=== PATIENT | female | born 1945 | race Caucasian/White ===

== ENCOUNTER → 2017-10-29 | Outpatient (CLI) | payer OTHER, MEDICARE ==
[~2017-10-29] VITALS: Ht 165.1 cm; Wt 74.8 kg
[~2017-10-29] MED LIST: CARDIZEM CD120 MG PO; COLACE100 MG PO; ELIQUIS5 MG PO; FLECAINIDE ACET50 M1 PO; LEVOTHYROXINE100 MC1 PO; MULTAQ 400 MG400 MG PO; OMEPRAZOLE40 MG PO; PACERONE 200 M200 M1 PO; TYLENOL325 MG PO; ZOCOR 20 MG TAB20 M1 PO
--- NOTE | ~2017-10-29 | P ---
[facility] [place] [address] PROCEDURE REPORT Name: HIRAM TRIMBLE Room #: REG [facility]#: [id number] Admission: 10/29/17 Attend Phys: Morgan Gomez MD Discharge: Date of : 49 Report #: [id number] THIS REPORT FOR: //name// CC: Morgan Welsh [place] PROCEDURE: Cardioversion. PREOPERATIVE DIAGNOSIS: Atrial fibrillation. POSTOPERATIVE DIAGNOSIS: Atrial fibrillation. HISTORY: The patient is a patient with atrial fibrillation, here for cardioversion. DESCRIPTION OF PROCEDURE: The patient underwent informed consent. The patient was then sedated by the Anesthesiology Service. Once sedated, she underwent a synchronized 200 joule cardioversion. She then went back into atrial fibrillation. A second 200 joule cardioversion was performed and she maintained sinus rhythm. There were no complications. CONCLUSIONS: Successful DC cardioversion with jewish of sinus rhythm. <ELECTRONICALLY SIGNED> By: Morgan Gomez MD 12/08/17 1455 1200 [id number] Morgan Gomez MD /nt
[2017-10-29 09:42] VITALS: BP 140/82
== END | disposition home or self-care (01) ==
LOC: CATH 09:14
DX: I48.91 Unspecified atrial fibrillation (principal); E78.5 Hyperlipidemia, unspecified; K21.9 Gastro-esophageal reflux disease without esophagitis; Z82.49 Family history of ischemic heart disease and other diseases of the circulatory system; Z98.890 Other specified postprocedural states; Z90.710 Acquired absence of both cervix and uterus; Z79.899 Other long term (current) drug therapy; Z79.01 Long term (current) use of anticoagulants; Z95.5 Presence of coronary angioplasty implant and graft; Z88.0 Allergy status to penicillin
CPT/HCPCS: 62110; 62900

== ENCOUNTER → 2017-12-18 | Outpatient (CLI) | payer OTHER, MEDICARE ==
[~2017-12-18] VITALS: Ht 165.1 cm; Wt 74.4 kg
--- NOTE | ~2017-12-18 | EKG ---
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 12/18/17 1658 1324 1324 Carmelo George MD, [facility] /EPI
--- NOTE | ~2017-12-18 | P ---
[facility] [place] [address] PROCEDURE REPORT Name: HIRAM TRIMBLE [id number] Admission: 12/18/17 Attend Phys: Morgan Gomez MD Discharge: Date of : 49 Report #: [id number] THIS REPORT FOR: //name// CC: Morgan Titustings PROCEDURE: Cardioversion. PREOPERATIVE DIAGNOSIS: Atrial fibrillation. POSTOPERATIVE DIAGNOSIS: Atrial fibrillation. DESCRIPTION OF PROCEDURE: The patient underwent informed consent. We discussed the risks and benefits of the procedure. The patient was then sedated by the Anesthesiology service. Once sedated, the patient underwent successful 200 joules synchronized cardioversion with amish of sinus rhythm. There were no complications. CONCLUSIONS: Successful DC cardioversion with amish of sinus rhythm. By: [id number] Morgan Gomez MD /nt
[2017-12-18 10:01] VITALS: BP 141/96
[2017-12-18 11:23] LABS: ABSOLUTE NEUTROPHILS 2.8 thou/uL (1.4-8.2); BASOPHILS 1.4 % (0.0-2.0); EOSINOPHILS 2.4 % (0.0-3.0); HEMATOCRIT 41.3 % (37.0-47.0); HEMOGLOBIN 14.5 gm/dL (12.0-15.0); LYMPHOCYTES 37.9 % (24.0-44.0); MCH 32.4 pg (26.0-34.0); MCV 92.5 fL (80.0-100.0); PLATELET COUNT 194 thou/uL (150-400); POLYS 49.3 % (36.0-66.0); RBC 4.46 mil/uL (4.20-5.00); WBC 5.8 thou/uL (4.0-11.0)
[2017-12-18 11:33] LABS: APTT 27.9 Seconds (24.5-32.8); INR 1.1; PROTIME 10.9 Seconds (9.3-11.4)
[2017-12-18 11:36] LABS: CALCIUM 8.6 mg/dL (8.5-10.1); CREATININE 1.4 mg/dL (0.6-1.0); POTASSIUM 4.1 mmol/L (3.5-5.1)
[2017-12-18 11:49] LABS: ALBUMIN 3.7 g/dL (3.4-5.0); TOTAL BILIRUBIN 0.8 mg/dL (<0.1-1.0); TOTAL PROTEIN 7.6 g/dL (6.4-8.2)
== END | disposition home or self-care (01) ==
LOC: CATH 08:49
PROVIDERS: Internal Medicine Cardiovascular Disease
DX: I48.91 Unspecified atrial fibrillation (principal); E78.5 Hyperlipidemia, unspecified; K21.9 Gastro-esophageal reflux disease without esophagitis; Z82.49 Family history of ischemic heart disease and other diseases of the circulatory system; Z95.5 Presence of coronary angioplasty implant and graft; Z98.890 Other specified postprocedural states; Z90.710 Acquired absence of both cervix and uterus; Z79.899 Other long term (current) drug therapy; Z79.01 Long term (current) use of anticoagulants; Z88.0 Allergy status to penicillin; Z88.8 Allergy status to other drugs, medicaments and biological substances
CPT/HCPCS: 62110; 62900

== ENCOUNTER → 2020-01-17 | Outpatient (CLI) | payer OTHER, MEDICARE ==
[~2020-01-17] MED LIST changes: +ACYCLOVIR 400400 MG PO; +BIOTIN5 M1 PO; +BUSPIRONE HCL5 MG PO; -CARDIZEM CD120 MG PO; +CARTIA XT120 M1 PO; +CORTISPORIN OIN15 GM TOP; +DILTIAZEM ER120 M2 PO; +DOXYCYCLINE 10100 MG PO; +ERYTHROMYCIN E3.5 G2 OPHTHALMIC; +GABAPENTIN600 M1 PO; +HYDROCODON-ACE1 EAC8 PO; +HYDROXYZINE HCL25 M2 PO; -LEVOTHYROXINE100 MC1 PO; +LEVOTHYROXINE112 MCG PO; +LIDOCAINE PLUS120 GM TOP; +LIPITOR40 MG PO; +LOSARTAN POTASS50 MG PO; +LYRICA 50 MG50 MG PO; +NORCO 5-325 TA1 EACH PO; +TYLENOL EXTRA500 MG PO; -TYLENOL325 MG PO; +VITAMIN D3-ALO1 EACH PO; +VITAMIN D31250 MC1 PO; +VITAMIN D350 MC3 PO; +WELLBUTRIN 75 M75 M1 PO
[2020-01-17 09:55] LABS: ABSOLUTE NEUTROPHILS 2.8 thou/uL (1.4-8.2); BASOPHILS 2.1 % (0.0-2.0); EOSINOPHILS 4.1 % (0.0-3.0); HEMOGLOBIN 13.6 gm/dL (12.0-15.0); MCH 32.7 pg (26.0-34.0); MCHC 34.1 g/dL (28.0-37.0); MCV 95.9 fL (80.0-100.0); MONOCYTES 9.7 % (1.0-8.0); PLATELET COUNT 225 thou/uL (150-400); POLYS 48.1 % (36.0-66.0); RBC 4.17 mil/uL (4.20-5.00); RDW 13.2 % (10.5-14.5); WBC 5.9 thou/uL (4.0-11.0)
[2020-01-17 10:13] LABS: CALCIUM 8.4 mg/dL (8.5-10.1); CREATININE 1.4 mg/dL (0.6-1.0); TOTAL BILIRUBIN 0.4 mg/dL (0.2-1.0); TOTAL PROTEIN 7.4 g/dL (6.4-8.2)
== END ==
LOC: CAT 01-14 10:22 → LAB 01-14 14:49 → CAT 08:52
PROVIDERS: ATTEND Internal Medicine Cardiovascular Disease
DX: Z01.812 Encounter for preprocedural laboratory examination (principal); Z20.828 Contact with and (suspected) exposure to other viral communicable diseases; I48.91 Unspecified atrial fibrillation

== ENCOUNTER → 2020-01-18 | Outpatient (CLI) | payer OTHER, MEDICARE | LOC: CAT 08:52 | PROVIDERS: ATTEND Internal Medicine Cardiovascular Disease | DX: I48.91 Unspecified atrial fibrillation (principal) ==

== ENCOUNTER 2020-01-19 06:36 | Observation (INO) | payer OTHER, MEDICARE ==
[2020-01-19] VITALS (12 sets, daily range): BP systolic 89–144; BP diastolic 47–71
[~2020-01-19] VITALS: Ht 165.1 cm; Wt 78.5 kg
[~2020-01-19 06:36] MED LIST changes: -BIOTIN5 M1 PO; -GABAPENTIN600 M1 PO; -HYDROXYZINE HCL25 M2 PO; -LIDOCAINE PLUS120 GM TOP; -VITAMIN D31250 MC1 PO; -VITAMIN D350 MC3 PO
[2020-01-19 07:24] LABS: HEMATOCRIT 40.6 % (37.0-47.0); HEMOGLOBIN 13.7 gm/dL (12.0-15.0); MCH 32.4 pg (26.0-34.0); MCHC 33.8 g/dL (28.0-37.0); MCV 95.8 fL (80.0-100.0); PLATELET COUNT 218 thou/uL (150-400); RBC 4.24 mil/uL (4.20-5.00); RDW 13.3 % (10.5-14.5); WBC 6.1 thou/uL (4.0-11.0)
[2020-01-19] MEDS ORDERED: GABAPENTIN600 M1 PO (07:42)
[2020-01-19 07:47] LABS: CALCIUM 8.6 mg/dL (8.5-10.1); CREATININE 1.3 mg/dL (0.6-1.0); POTASSIUM 3.8 mmol/L (3.5-5.1)
[2020-01-19] MEDS ORDERED: HYDROXYZINE HCL25 M2 PO (07:47)
[2020-01-19] MEDS ORDERED: BIOTIN5 M1 PO (07:48)
[2020-01-19] MEDS ORDERED: VITAMIN D31250 MC1 PO (07:49)
[2020-01-19] MEDS ORDERED: LIDOCAINE PLUS120 GM TOP (07:51)
[2020-01-19 07:52] LABS: APTT 27.2 Seconds (24.5-32.8); PROTIME 10.3 Seconds (9.3-11.4)
[2020-01-19] MEDS ORDERED: VITAMIN D350 MC3 PO (07:52)
[2020-01-19 07:53] LABS: ALBUMIN 3.9 g/dL (3.4-5.0); TOTAL BILIRUBIN 0.4 mg/dL (0.2-1.0); TOTAL PROTEIN 7.5 g/dL (6.4-8.2)
[2020-01-19 09:35] LABS: ABSOLUTE NEUTROPHILS 3.1 thou/uL (1.4-8.2)
[2020-01-19 09:36] LABS: ANISOCYTOSIS SLIGHT
--- NOTE | 2020-01-19 18:06 | NUR ---
PT ADMITED FROM [facility]. ADMISSION HX AND ASSESSMENT COMPLETED. VSS. RIGHT GROIN INCISION C/D/I. NO HEMATOMA NOTED. PRN PAIN MED GIVEN WITH PARTIAL RELIEF. NEW ORDERS NOTED.
[2020-01-20 01:01] VITALS: BP 96/50
[2020-01-20 03:30] VITALS: BP 102/54
--- NOTE | 2020-01-20 03:43 | NUR ---
Assessment as documented. pt been resting in no acute distress.Remains AOx4.VSS. S/p AFIB ablation,right groin dressing cdi.NSR on monitor with runs of pvcs with exertion.ON RA,CPAP on while sleeping.No resp distress voiced.Possibly discharge to home today.
[2020-01-20 04:30] VITALS: BP 102/54
[2020-01-20 08:00] VITALS: BP 89/52
[2020-01-20 09:54] VITALS: BP 89/52
--- NOTE | 2020-01-20 10:26 | NUR ---
ASSESSMENT CHARTED. PT ALERT AND ORIENTED. NSR ON TELE. NO HEMATOMA NOTED ON THE RIGHT GROIN INCISION. SEEN BY DR. JI. ORDERS GIVEN TO DISCHARGE PT TO HOME. DISCHARGE INSTRUCTIONS GIVEN TO PT. PT LEFT THE FACILITY ACCOMPANIED BY THE .
--- NOTE | 2020-01-20 15:45 | P ---
[facility] [address] PROCEDURE REPORT Name: HIRAM TRIMBLE Room #: 207-P [facility]..#: [id number] Admission: 01/19/20 Attend Phys: Morgan Gomez MD Discharge: 01/20/20 Date of : 49 Report #: [id number] THIS REPORT FOR: cc: Anitha Zamarripa Stefany RNP Couchonnal, Luis F. MD ~ CC: Morgan Zamarripa DATE OF SERVICE: 01/19/2020 ATRIAL FIBRILLATION AND ATRIAL FLUTTER ABLATION PREOPERATIVE DIAGNOSIS: Atrial fibrillation. POSTOPERATIVE DIAGNOSES: Atrial fibrillation and atrial flutter. PROCEDURES PERFORMED: 1. Atrial fibrillation ablation, CPT code 83113. 2. 3D mapping, CPT code 57492. 3. Intracardiac echo, CPT code 21228. 4. Focal pathway ablation for atrial flutter, CPT code 75689. 5. Preprocedural pacemaker reprogramming, CPT code 98678. 6. Postprocedural pacemaker reprogramming, CPT code 80067. HISTORY: The patient is a 74-year-old with history of paroxysmal atrial fibrillation as well as sick sinus syndrome, status post Biotronik pacemaker implantation, here for AFib ablation. ANESTHESIA: The patient underwent general anesthesia with no anesthesia related complications. DESCRIPTION OF PROCEDURE: The patient underwent informed consent. We discussed the details of the procedure including the risks, which include but not limited to bleeding, vascular damage, stroke, MD as well as damage to the pitka's point conduction system. She understood these risks and is willing to proceed. The patient was brought to the EP laboratory in a fasting and sedated state and prepped and draped in a sterile fashion. I obtained access to the right femoral vein, placing 8, 9 and 7-Turkish sheath using the modified Seldinger technique. Next, under fluoroscopy, I placed a decapolar catheter easily in the coronary sinus and an ICE catheter in the right atrium. Of note, prior to the procedure being initiated, her pacemaker was interrogated and found to be functioning normally and rate response was disabled. Using intracardiac ultrasound, I created detailed 3D geometry of the left atrium, which appeared to demonstrate a large left common ostium, which demonstrated a left superior and left inferior [address] [address] PROCEDURE REPORT Name: HIRAM TRIMBLE Room #: 207-P [facility] Reid Molina#: [id number] Admission: 01/19/20 Attend Phys: Morgan Gomez MD Discharge: 01/20/20 Date of : 49 Report #: [id number]. She also had a right superior and right inferior pulmonary vein. This was merged with the cardiac CT scan. The patient was systemically heparinized and a transseptal was performed using an SL1 sheath and a [place] needle. I exchanged the SL1 sheath for the cryo sheath, which advanced easily into the left atrium. I then placed a Lasso catheter in the left atrium and created a detailed 3D voltage map of the left atrium. Next, the cryoballoon was placed into the left atrium and I started by isolating the upper branch of the left common ostium. This vein underwent 3 freezes; the first freeze was of 150 seconds' duration and the next 2 freezes were of 240 seconds' duration. Post-ablation, there was isolation of the pulmonary veins. I then turned my attention to the left inferior pulmonary vein. I performed 2, 4-minute freezes in this vein as well and the vein was isolated during the first freeze. I then turned my attention to the right superior pulmonary vein and this vein underwent a single 180-second freeze. The vein isolated in about 20 seconds. There was some phrenic nerve weakness and therefore, we came off at 180. The phrenic nerve returned to full strength after a few minutes. The right inferior pulmonary vein underwent a single 3-minute freeze and the vein isolated within 20 seconds. I then removed the cryo catheter from the heart and placed the Lasso catheter back in the left atrium. A detailed 3D voltage map showed that all 4 pulmonary veins were isolated. Of note, while we were performing our initial map, the patient did go into atrial flutter with an atrial cycle length of 290 milliseconds in a proximal to distal activation along the CS and negative sawtooth flutter waves in the inferior leads. As such, after conclusion of the AFib ablation, the patient underwent atrial flutter ablation. ATRIAL FLUTTER ABLATION: Next, I created a detailed 3D geometry of the right atrium. Pre-ablation, the transisthmus conduction time was 50 milliseconds. Ablation was performed at 6 o'clock along the cavotricuspid isthmus. Ablation was performed using a ramp sheath and an 8-mm ablation catheter with ablation performed at 70 sanderson and 60 degrees. Continuous drag lesion was created and once this line was completed, there was evidence of bidirectional block with transisthmus conduction time of 160 milliseconds. I did perform a second line as well to ensure that block would remain. Post-ablation, the patient was in sinus rhythm. Using intracardiac ultrasound, I verified there was no pericardial effusion. The patient received systemic protamine and all catheters and sheaths were pulled. A [id number] suture with a 3-way stopcock closure was performed. The pacemaker was re-interrogated and found to be functioning normally and programmed back to its nominal settings. CONCLUSIONS: 1. Successful AFib ablation with isolation of the pulmonary veins. [facility] [address] [place] [address] PROCEDURE REPORT Name: HIRAM TRIMBLE Room #: 207-P [facility] Reid M.R.#: [id number] Admission: 01/19/20 Attend Phys: Morgan Gomez MD Discharge: 01/20/20 Date of : 49 Report #: [id number] 2. Successful atrial flutter ablation with bidirectional block. 3. Successful pacemaker reprogramming. <ELECTRONICALLY SIGNED> By: Morgan Gomez MD 01/20/20 1545 1132 1608 Morgan Gomez MD /nt
== END 2020-01-20 10:20 | disposition home or self-care (01) ==
LOC: CATH 06:36 → 2N 14:49
PROVIDERS: ADMIT Internal Medicine Cardiovascular Disease; ATTEND Internal Medicine Cardiovascular Disease
DX: I48.91 Unspecified atrial fibrillation (principal); I48.92 Unspecified atrial flutter; I49.5 Sick sinus syndrome; F41.9 Anxiety disorder, unspecified; I25.10 Atherosclerotic heart disease of native coronary artery without angina pectoris; I10 Essential (primary) hypertension; Z79.899 Other long term (current) drug therapy
CPT/HCPCS: 62110; 62900; 65020; 65040; 70005

== ENCOUNTER → 2020-02-02 | Outpatient (CLI) | payer OTHER, MEDICARE ==
[~2020-02-02] MED LIST changes: +BIOTIN5 M1 PO; +GABAPENTIN600 M1 PO; +HYDROXYZINE HCL25 M2 PO; +LIDOCAINE PLUS120 GM TOP; +VITAMIN D31250 MC1 PO; +VITAMIN D350 MC3 PO
== END ==
LOC: SJCVC 12:58
PROVIDERS: ATTEND Nurse Practitioner
DX: R94.31 Abnormal electrocardiogram [ECG] [EKG] (principal); I45.10 Unspecified right bundle-branch block; I48.0 Paroxysmal atrial fibrillation; I49.5 Sick sinus syndrome; I25.10 Atherosclerotic heart disease of native coronary artery without angina pectoris; I10 Essential (primary) hypertension; I65.23 Occlusion and stenosis of bilateral carotid arteries; E78.2 Mixed hyperlipidemia; Z95.0 Presence of cardiac pacemaker; Z79.899 Other long term (current) drug therapy